=== PATIENT | female | born 1975 | race Caucasian/White ===

== ENCOUNTER → 2018-01-27 | Day surgery (SDC) | payer OTHER ==
--- NOTE | 2018-01-26 14:10 | History & Physical Pre-Op ---
General Information and HPI History of Present Illness: This is a 42-year-old woman who notes increasing pain and swelling at her umbilicus. The swelling has been persistent over the past 2 months. There is postprandial bloating but no nausea or vomiting. Bowel function is normal. She notes that the bulge is always present and never spontaneously resolved. 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 She reports no abnormal moles, no jaundice, no hives, no eczema, and no rashes. She reports no swollen glands and no neck stiffness. She reports no cough, no wheezing, no shortness of breath, and no coughing up blood. She reports no chest pain, no arm pain on exertion, no shortness of breath when walking, no shortness of breath when lying down, no palpitations, and no leg swelling. She reports no abdominal pain, no vomiting, no vomiting blood, normal appetite, no diarrhea, no constipation, no rectal bleeding, and no history of GERD. She reports no incontinence, no difficulty urinating, no hematuria, and no increased frequency. She reports no muscle aches, no muscle weakness, no arthralgias/joint pain, and no back pain. She reports no gynecologic complaints. Exam & Diagnostic Data Physical Exam: Patient is a 42-year-old female. Constitutional: General Appearance: healthy-appearing, well-nourished, and well- developed. Level of Distress: no acute distress. Ambulation: ambulating normally. Head: Head: normocephalic and atraumatic. Cardiovascular: Heart Auscultation: normal S1 and S2; no murmurs, rubs, or gallops; and regular rate and rhythm. Lungs: Respiratory effort: no dyspnea. Percussion: no dullness, flatness, or hyperresonance. Auscultation: no wheezing, rales/crackles, or rhonchi and breath sounds normal, good air movement, and clear to auscultation. Back: Thoracolumbar Appearance: normal curvature. Abdomen: Inspection and Palpation: no tenderness, guarding, masses, rebound tenderness, or CVA tenderness and soft and non-distended. Bowel Sounds: normal. Liver: non-tender and no hepatomegaly. Spleen: non-tender and no splenomegaly. Hernia: periumbilical (2 fascial defects near the umbilicus. One is through the umbilicus and contains a reducible fat-containing hernia. There is a separate defect just supero left lateral and contains incarcerated fatty tissue. There is tenderness without guarding. Both defects encompass an area of 2 cm). Skin: Inspection and palpation: no rash, lesions, ulcer, induration, nodules, jaundice, or abnormal nevi and good turgor. Musculoskeletal:: Extremities: no cyanosis, edema, varicosities, or palpable cord. Motor Strength and Tone: normal tone and motor strength. Joints, Bones, and Muscles: no contractures, malalignment, tenderness, or bony abnormalities and normal movement of all extremities. Assessment/Plan Assessment/Plan: Irreducible hernia of anterior abdominal wall - There are 2 fascial defects both of which are very small. Recommend open repair with mesh. K46.0: Unspecified abdominal hernia with obstruction, without gangrene Discussion Notes Discussed the pathophysiology of umbilical hernia and the need for repair to prevent incarceration/ strangulation of bowel. Discussed the potential need for mesh placement depending on the size of the defect. Patient understands the perment nature of mesh. Discussed the risks of surgery including bleeding, infection and recurrence of the hernia. As Ranked By This Provider Problem List: 1. Abdominal hernia with obstruction and without gangrene
[~2018-01-27] VITALS: Ht 160 cm; Wt 72.6 kg
[~2018-01-27] MED LIST: ALBUTEROL0.09 MG/A1 INH; ALLEGRA-D 24 H1 EACH PO; ASMANEX TW0.22 MG/A1 PO; BREO ELLIPTA 11 EACH; BREO ELLIPTA 21 EACH INH; CELEBREX200 M1 PO; MONTELUKAST SOD10 M1 PO; PERCOCET 325 MG1 TA2 PO; SERTRALINE HCL100 MG PO; SERTRALINE HYD100 MG PO
--- NOTE | 2018-01-27 09:48 | Operative Report ---
Operative/Inv Procedure Report Surgery Date: 01/27/18 Name of Procedure: Incarcerated umbilical hernia repair Pre-Operative Diagnosis: Ventral hernia Post-Operative Diagnosis: Umbilical hernia Estimated Blood Loss: scant Surgeon/Grades 9 12 Tutor: Daniel MENDEZ,Juan Francisco Toledo/Layne ROGERS Anesthesia: laryngeal mask airway Implants: None Operative/Procedure Note Note: After informed consent patient brought to the operating room and laid supine. Gen. anesthesia obtained and the abdomen was prepped and draped. The periumbilical tissues were infiltrated with a cocktail local anesthesia. A curvilinear incision was made sharply. We dissected down to the umbilical stalk and circumferentially dissected it bluntly. The stock was then transected with cautery, thus exposing the defect. The hernia sac was circumferentially dissected down to level of fascia and incised the neck with cautery. Contents were then reduced. The defect was diminutive in size not requiring mesh. It was closed transversely with 3 interrupted 0 Maxon sutures. Wound was irrigated with saline. The umbilical stalk re-created with 3-0 Vicryl. Incision was then closed in layers of Vicryl. Sterile dressings were applied. Sponge and needle counts are correct CC: Carmita MENDEZ,Ita
== END ==
LOC: STS 01:16
DX: K42.9 Umbilical hernia without obstruction or gangrene (principal); J45.909 Unspecified asthma, uncomplicated; Z87.891 Personal history of nicotine dependence
CPT/HCPCS: 81025; J0131; J0690; J2250; J3490

== ENCOUNTER 2018-05-26 13:04 | Emergency (ER) | payer OTHER ==
[~2018-05-26] VITALS: Ht 160 cm; Wt 74.8 kg
[2018-05-26 13:18] VITALS: BP 122/81
--- NOTE | 2018-05-26 13:25 | ED SKIN/ALLERGY COMPLAINT ---
History of Present Illness General Chief Complaint: Skin Rash/ Abcess Stated Complaint: SIB DR. ESCUDERO FOR ?BLEEDING GROWTH Source: patient Exam Limitations: no limitations Vital Signs & Intake/Output Vital Signs & Intake/Output Vital Signs Date Time Temp Pulse Resp B/P B/P Pulse O2 O2 Flow FiO2 Mean Ox Delivery Rate 05/26 1318 98.5 77 18 122/81 98 Room Air Allergies Coded Allergies: aspirin (ASTHMA ATTACK 01/25/18) cat dander (TRIGGERS ASTHMA 01/26/18) ibuprofen (ASTHMA EXACERBATION 01/25/18) Reconcile Medications Celecoxib (Celebrex) 200 MG CAPSULE 1 CAP PO DAILY ARTHRITIS (Reported) Fexofenadine/Pseudoephedrine (Richa-D 24 Hour Tablet) 180 MG-240 MG TAB.ER.24H 1 TAB PO DAILY PRN ALLERGIES (Reported) Fluticasone/Vilanterol (Breo Ellipta 200-25 Mcg INH) 200 MCG-25 MCG/DOSE BLST.W.DEV 1 PUFF INH DAILY ASTHMA (Reported) Montelukast Sodium 10 MG TABLET 1 TAB PO DAILY ALLERGIES/ASTHMA (Reported) Sertraline HCl 100 MG TABLET 1 TAB PO DAILY ANXIETY/DEPRESSION (Reported) Triage Note: 43F HAS A BLEEDING GROWTH SEEN BY DR ESCUDERO WHO SENT HER IN FOR CAUTERIZATION BECAUSE IT BLEEDS THROUGH GAUZE AND TROUBLE STOPPING THE BLEEDING. STATES IT IS JUST BENEATH HER RIGHT BREAST, FIRST NOTICED EARLIER THIS WEEK. ?BLOOD VESSEL GROWTH. DENIES SIGNIFICANT PAIN Triage Nurses Notes Reviewed? yes Onset: Gradual Duration: week(s): Timing: recent history Severity: moderate Location: torso : No Patient currently breastfeeds: No HPI: 43YO female presents to ED complaining of bleeding growth to right abdomen. Patient states she noticed a small growth on right abdomen about one week ago. She saw her primary care physician today for this gross to be evaluated. Patient states that while at the office her doctor was palpating the area and the growth had bleeding which would not stop. They applied a dressing and referred her to the emergency department for possible cauterization. Patient has no history of a similar lesion in the past. She has no known family history of skin cancers. (Eliza ROGERS,Soraida Tiwari) Past History Travel History Traveled to [place] past 21 day No Medical History Any Pertinent Medical History? see below for history Respiratory: asthma Psychiatric: depression Blood Disorders: THALLISEMIA MINOR Cancer(s): BENIGN L LUMPECTOMY Influenza Vaccine: 08/29/00 Tetanus Vaccine: 09/10/12 Surgical History Surgical History: , lumpectomy Psychosocial History Who do you live with Daughter Services at Home None What is your primary language Guatemalan Tobacco Use: Never used Family History Hx Contributory? No (Soraida Quintana) Review of Systems Review of Systems Constitutional: Reports: no symptoms. EENTM: Reports: no symptoms. Respiratory: Reports: no symptoms. Cardiovascular: Reports: no symptoms. GI: Reports: no symptoms. Genitourinary: Reports: no symptoms. Musculoskeletal: Reports: no symptoms. Skin: Reports: see HPI. Neurological/Psychological: Reports: no symptoms. Hematologic/Endocrine: Reports: no symptoms. Immunologic/Allergic: Reports: no symptoms. All Other Systems: Reviewed and Negative (Soraida Quintana) Physical Exam Physical Exam General Appearance: well developed/nourished, no apparent distress, alert, awake Head: atraumatic, normal appearance Eyes: Bilateral: normal appearance. Ears, Nose, Throat: hearing grossly normal Neck: normal inspection, supple, full range of motion Respiratory: no respiratory distress Back: normal inspection, normal range of motion Extremities: normal range of motion Neurologic/Psych: awake, alert, oriented x 3 Skin: 0.8cmx0.8cm round raised flesh colored lesion to right abdomen, vascularized however no active bleeding, nontender (Soraida Quintana) Progress Differential Diagnosis: abscess/cellulitis, contact dermatitis, wart, malignancy , hemangioma Plan of Care: Patient has no active bleeding from skin lesion at this time. Patient reports she has seen Dr. Sanchez in the past for hernia repair. Patient will require follow-up for excision and biopsy of this lesion. I informed the patient that there is a possibility that this is cancerous. I called Dr. Sanchez's office, he is out of the office however secretary book keeper was able to make this patient an appointment for 05/[address] Sanchez. Patient agrees to follow-up with Dr. Sanchez for further evaluation of this lesion. Area was dressed with surgicell and patient was given dressing supplies. The patient will return if she has further bleeding for possible cauterization at that time however given no bleeding now cauterization is not necessary. Patient agrees with the plan of care. Discussed findings with Dr. Stephens who agrees with this plan. (Eliza ROGERS,Soraida Tiwari) Departure Departure Disposition: HOME OR SELF CARE Condition: Stable Clinical Impression Primary Impression: Skin growth Referrals: Ita Escudero MD (PCP/Family) Additional Instructions: You were given surgicell dressing to cover the growth with. Follow up with Dr. Sanchez on Tuesday at 3:45PM. IF you have any bleeding please return for possible caudery. Please note that there might be incidental findings in your evaluation that are unrelated to the current emergency department visit. Please notify your primary care doctor about this emergency department visit in order to obtain and review all of the testing performed so that these incidental findings can be monitored as needed. If you had an x-ray performed, please understand that some fractures may not be seen on the initial set of x-rays. If your symptoms persist you might need a repeat set of x-rays to check for such a fracture. If you had a laceration evaluated, please understand that foreign bodies such as glass or wood may not be visible to the naked eye or on plain x-rays. If the wound becomes red, swollen, increasingly more painful or if there is any drainage from the wound, please have it reevaluated by a physician for the possibility of a retained foreign body. If you're unable to follow up as outlined in the discharge instructions please return to the emergency department. Thank you for choosing the [facility] Emergency Department for your care. It was a pleasure to serve you today. Departure Forms: Customer Survey General Discharge Information (Eliza ROGERS,Soraida Tiwari) PA/HUMAN RESOURCES EXECUTIVE ASSISTANT Co-Sign Statement Statement: ED Attending supervision documentation- [] I saw and evaluated the patient. I have also reviewed all the pertinent lab results and diagnostic results. I agree with the findings and the plan of care as documented in the PA's/HUMAN RESOURCES EXECUTIVE ASSISTANT's documentation. [X] I have reviewed the ED Record and agree with the PA's/HUMAN RESOURCES EXECUTIVE ASSISTANT's documentation. [] Additions or exceptions (if any) to the PAs/HUMAN RESOURCES EXECUTIVE ASSISTANT's note and plan are summarized below: [] (Grayson Stephens DO
== END 2018-05-26 15:22 ==
LOC: ERH 13:04
DX: L98.9 Disorder of the skin and subcutaneous tissue, unspecified (principal)
CPT/HCPCS: 99282